=== PATIENT | female | born 1975 | race Caucasian/White ===

== ENCOUNTER → 2020-03-04 12:25 | Outpatient (BNVA) | payer OTHER, BC, SELFPAY | PROVIDERS: PCP Family Medicine; Visit Provider Nurse Practitioner Family | DX: Z20.828 Contact with and (suspected) exposure to other viral communicable diseases (principal) | CPT/HCPCS: 87635 ==

== ENCOUNTER → 2020-10-09 12:31 | Outpatient (BNVA) | payer OTHER, SELFPAY | PROVIDERS: Visit Provider Specialist | DX: G43.711 Chronic migraine without aura, intractable, with status migrainosus (principal) | CPT/HCPCS: 99214 ==

== ENCOUNTER 2020-11-09 09:22 | Outpatient (CLI) | payer OTHER, SELFPAY ==
--- NOTE | 2020-11-09 09:30 | MR_ITS ---
WS: [id number] MRI BRAIN WITHOUT CONTRAST HISTORY: G43.711 - Chronic migraine without aura, intractable, no injury. COMPARISON: 08/03/2013 TECHNIQUE: Diffusion imaging, multiplanar T1, T2 and FLAIR imaging obtained. No evidence for acute infarct or hemorrhage. Ruiz-white matter differentiation is normal. No remote or acute infarcts are volume loss. Ventricles and extra-axial spaces are normal. No inferior displacement of cerebellar tonsils. The sella turcica and pituitary gland are unremarkabl e. Posterior fossa is also unremarkable. Dural venous sinuses and [place] demonstrate no abnormality on this unenhanced studies. Paranasal sinuses: Clear. Mastoid air cells: Normal. Calvarium and scalp: No fracture. Ovoid 9 mm cyst in the superficial soft tissue posterior to the lef t ear. No change since 2013. MR/MR head wo con* [id number] IMPRESSION: 1. No acute infarct or hemorrhage. 2. No significant chronic white matter disease. Stable MRI brain since 4.
== END 2020-11-09 09:23 | disposition home or self-care (01) ==
LOC: RADSHAW 09:24
PROVIDERS: PCP Registered Nurse; Visit Provider Specialist
DX: G43.711 Chronic migraine without aura, intractable, with status migrainosus (principal)
CPT/HCPCS: 70551

== ENCOUNTER 2021-01-30 13:10 | Emergency (ER) | payer OTHER, SELFPAY ==
[2021-01-30 13:15] VITALS: BP 124/80; PULSE 96; RESP 18; TEMP 36.7; O2SAT 95; BMI 32.6
--- NOTE | 2021-01-30 13:25 | ED_ITS ---
HPI - Chest Pain General: Chief Complaint: Chest Pain Stated Complaint: CP(NOW RESOLVED);L ARM PAIN/TINGLING; PALPITATIONS Time Seen by Provider: 01/30/21 13:25 History of Present Illness: HPI narrative: Ms Handy is a 45-year-old lady with significant past medical history of palpitations and chest pain who presents to the emergency department due to chest pain. She reports pain at her baseline health recently without frequent episodes of chest pain. This morning, while driving she had subacute onset of a deep ache sensation that was moderate intensity in her left shoulder with mild tingling sensation down the left arm. She cannot think of specific provoking factors to this. Since that time it is persisted though is perhaps more mild. She attempted lngs-puh-[id number] medications with only minimal relief. She says that this is different from pre vious episodes of chest pain. There is no associated shortness of breath. No history of blood clot or recent travel. She does endorse still occasionally having palpitations and previously had a Holter monitor in 2019 which showed sinus arrhythmia with occasional ectopy. There was no arrhythmia correlated with episodes of chest pressure. No infectious symptoms. She is a non-smoker but does have a positive family history for early coronary artery disease. No other new specific changes in health, provoking, exacerbating, or relieving factors identified. Review of Systems General: Reports: 10 or more systems reviewed and unremarkable except in HPI and below Narrative: CONSTITUTIONAL: denies fever, fatigue, weakness EYES - denies pain, denies loss of vision NOSE - denies congestion or rhinorrhea. THROAT - denies sore throat or difficulty swallowing. CARDIOVASCULAR -see HPI RESPIRATORY - denies shortness of breath and cough GASTROINTESTINAL - denies abdominal pain, no nausea vomiting, no changes in bowel habits GENITOURINARY - denies dysuria or urinary frequency MUSCULOSKELETAL- denies deformity or pain SKIN - denies rashes or new changed skin lesions NEUROLOGIC - denies focal weakness or sensory changes HEMATOLOGIC/LYMPHATIC - denies easy bruising or lymphadenopathy. PFS ED PFSH: Medical History Anxiety Hepatic hemangioma Hypothyroidism Migraine Obesity Family History Grandfather Family history of premature coronary artery disease, Onset Age: 40 s/p CABG Father Family history of premature coronary artery disease, Onset Age: 62 in 60's, of massive [place] Mother Diabetes Grandmother Diabetes Family/Other CAD (coronary artery disease), Onset Age: 60 stents after [place] in paternal uncle Other Cancer Social History Smoking and tobacco status: never smoked Alcohol intake: current Alcohol intake frequency: holidays/special occasions only Physical Exam Narrative: EXAM NARRATIVE: GENERAL/CONSTITUTIONAL - well-appearing. No acute distress. Eyes - PERRL, no conjunctival injection ENMT - Atraumatic external nose and ears. Moist mucous membranes NECK - supple. trachea midline CARDIOVASCULAR - regular rate and rhythm. Peripheral pulses 2+ and equal RESPIRATORY -clear to auscultation bilaterally. No retractions or accessory muscle use. ABDOMEN/GI - Nontender/Nondistended. No tenderness to percussion or evidence of peritonitis MSK - Extremities without obvious deformity or tenderness to palpation SKIN - Warm, Dry NEURO - alert and appropriately oriented. strength and sensation intact. Moves all extremities equally. PSYCH - Appropriate mood and affect Course ED course: - Patient was seen and evaluated by me at bedside - Patient placed on cardiac monitors, IV access obtained - Initial evaluation notable for no acute distress, nontoxic appearance. - Labs notable for no acute abnormality to explain patient's symptoms. Symptom onset was greater than 6 hours ago and initial troponin is negative therefore repeat not needed. - Imaging notable for no acute abnormality to explain patient's symptoms. - Upon serial reexamination after treatment the patient was similar - Based on patient history, evaluation, labs, and imaging as interpreted the most likely cause of the patient's condition is unclear. I explained the methodology and risk stratification of heart score. The patient felt safe with outpatient follow-up as typical for low risk heart score. - The results of ED evaluation were discussed with the patient including prescriptions and/or symptomatic cares (if applicable) including appropriate and responsible use, followup plan, and return precautions. The patient verbalized understanding and felt safe for discharge. - Patient discharged in satisfactory condition. Vital Signs: Vital signs: Vital Signs Temperature 98.1 F 01/30/21 15:55 Pulse Rate 75 01/30/21 15:55 Respiratory Rate 18 01/30/21 15:55 Blood Pressure 119/45 01/30/21 15:55 Pulse Oximetry 98 01/30/21 15:55 MDM - Chest Pain Medical Records: Attestation: I reviewed the patient's medical records. Lab Data: Attestation: I reviewed the patient's lab results. Labs: Lab Results 01/30/21 01/30/21 01/30/21 Range/Units 14:11 14:11 14:11 WBC 8.8 (4.0-10.0) 10^3/ uL RBC 4.55 (4.1-5.3) 10^6/u L Hgb 13.4 (11.5-15.3) g/dL Hct 39.3 (37.0-47.0) % MCV 86.4 (81-99) fl MCH 29.5 (28.0-34.0) pg MCHC 34.1 (30.0-36.0) g/dL RDW 12.3 (12.1-15.1) % Plt Count 260 (130-400) 10^3/c mm MPV 10.9 H (7.4-10.4) fL Neut % (Auto) 56.3 % Lymph % (Auto) 30.2 % [place] % (Auto) 13.1 % Eos % (Auto) 0.0 % Baso % (Auto) 0.1 % Neut # (Auto) 4.93 (1.8-7.7) 10^3/u L Lymph # (Auto) 2.7 (0.8-4.8) 10^3/u L [place] # (Auto) 1.2 H (0.2-0.9) 10^3/u L Eos # (Auto) 0.0 (0.0-0.8) 10^3/u L Baso # (Auto) 0.0 (0.0-0.1) 10^3/u L Nucleated RBC % (a uto) 0 % Nucleated RBCs # 0.0 /100WBC Sodium 138 (136-145) mmol/L Potassium 4.0 (3.5-5.1) mmol/L Chloride 105 (98-107) mmol/L Carbon Dioxide 23 (22-29) mmol/L Anion Gap 14.0 (5-19) BUN 12 (6-20) mg/dL Creatinine 0.5 (0.5-0.9) mg/dL GFR Calculation 133.4 H (90-130) mL/min Glucose 108 (65-115) mg/dL Calculated Osmolal ity 286 (285-295) mOsm/k g Calcium 8.6 (8.5-10.5) mg/dL Total Bilirubin 0.2 (0.15-1.2) mg/dL AST 17 (0-32) U/L ALT 21 (0-33) U/L Alkaline Phosphata se 77 (35-105) IU/L Troponin T Baselin e 6 (0-10) ng/L Total Protein 6.5 L (6.6-8.7) g/dL Albumin 3.9 (3.5-5.2) g/dL Globulin 2.6 (1.3-4.6) g/dL TSH 0.05 L (0.27-4.20) uIU/ mL Free T4 (0.82-1.77) ng/d L 01/30/21 Range/Units 14:11 WBC (4.0-10.0) 10^3/ uL RBC (4.1-5.3) 10^6/u L Hgb (11.5-15.3) g/dL Hct (37.0-47.0) % MCV (81-99) fl MCH (28.0-34.0) pg MCHC (30.0-36.0) g/dL RDW (12.1-15.1) % Plt Count (130-400) 10^3/c mm MPV (7.4-10.4) fL Neut % (Auto) % Lymph % (Auto) % [place] % (Auto) % Eos % (Auto) % Baso % (Auto) % Neut # (Auto) (1.8-7.7) 10^3/u L Lymph # (Auto) (0.8-4.8) 10^3/u L [place] # (Auto) (0.2-0.9) 10^3/u L Eos # (Auto) (0.0-0.8) 10^3/u L Baso # (Auto) (0.0-0.1) 10^3/u L Nucleated RBC % (a uto) % Nucleated RBCs # /100WBC Sodium (136-145) mmol/L Potassium (3.5-5.1) mmol/L Chloride (98-107) mmol/L Carbon Dioxide (22-29) mmol/L Anion Gap (5-19) BUN (6-20) mg/dL Creatinine (0.5-0.9) mg/dL GFR Calculation (90-130) mL/min Glucose (65-115) mg/dL Calculated Osmolal ity (285-295) mOsm/k g Calcium (8.5-10.5) mg/dL Total Bilirubin (0.15-1.2) mg/dL AST (0-32) U/L ALT (0-33) U/L Alkaline Phosphata se (35-105) IU/L Troponin T Baselin e (0-10) ng/L Total Protein (6.6-8.7) g/dL Albumin (3.5-5.2) g/dL Globulin (1.3-4.6) g/dL TSH (0.27-4.20) uIU/ mL Free T4 0.96 (0.82-1.77) ng/d L EKG Data^: EKG 1: Attestation: I personally reviewed and interpreted this EKG as follows: EKG interpretation date: 01/30/21 EKG interpretation time: 13:35 Prior EKG tracings: not available for review Interpretation: Twelve-lead EKG shows a regular sinus rhythm at a rate of 86. MA interval 128, QRS duration 88, QTc 422. Normal axis. Interpretation: Sinus rhythm. Discharge Plan Discharge Patient Disposition: Home Clinical Impression: Chest pain Condition: Stable Prescriptions: No Action thyroid (pork) [[place] Thyroid] 120 mg tablet 120 mg PO DAILY RF: 0 sumatriptan succinate [Imitrex] 100 mg tablet 100 mg PO Q2H PRN (Reason: Migraine Headache) RF: 0 venlafaxine 150 mg capsule,extended release 24hr 150 mg PO DAILY RF: 0 Vitamin D3 50 mcg (2,000 unit) Capsule 50 mcg PO DAILY RF: 0 Discharge Orders: Discharge ED (Routine); Ordered 01/30/21 Ordered By: Austin Putnam Referrals: Rhianna Diop DO [Primary Care Provider] - Discharge Diet: Usual diet Discharge Activity: Resume usual activity Patient Instructions: Chest Pain (ED) Activity Restrictions/Additional Instructions: Thank you for visiting the emergency department. You were seen and evaluated for chest pain and arm pain. The exact cause of your symptoms is unclear. Based on risk stratification we recommend following up in the outpatient setting for further cardiac monitoring including a stress test and echocardiogram and follow-up with cardiology. 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 Please return to the emergency department for worsening your symptoms or anything else that you are concerned about and feel needs emergency department evaluation. Coding Level of Care Code ED Medical Record Librarian for Neri Long
[2021-01-30 13:33] VITALS: BP 133/78; PULSE 91; RESP 18; O2SAT 97
--- NOTE | 2021-01-30 13:48 | XRR_ITS ---
PROCEDURE INFORMATION: Exam: XR Chest Exam date and time: 01/30/2021 1:48 PM Age: 45 years old Clinical indication: Angina pectoris; Patient HX: --cp this morning, has since resolved, lingering left arm and shoulder pain; Additional info: Chest pain TECHNIQUE: Imaging protocol: XR of the chest. Views: 1 view. COMPARISON: No relevant prior studies available. FINDINGS: Lungs: Unremarkable. No consolidation. Pleural spaces: Unremarkable. No pleural effusion. No pneumothorax. Heart/Mediastinum: Unremarkable. No cardiomegaly. Bones/joints: Unremarkable. XR/XR chest 1V portable [id number] IMPRESSION: No acute findings.
--- NOTE | 2021-01-30 13:52 | PC.NURSE ---
pt remains on school lunch monitor
[2021-01-30 13:54] VITALS: BP 133/78; PULSE 85; RESP 18; O2SAT 97
[2021-01-30] MEDS: aspirin 81 mg Chew Tablet 324 MG PO (14:12)
--- NOTE | 2021-01-30 14:16 | PC.NURSE ---
pt requesting to have blood draw and water PO. Dr. Putnam. IV order deleted
[2021-01-30 14:19] LABS: Basophils % 0.1 %; Hematocrit 39.3 % (37.0-47.0); Hemoglobin 13.4 g/dL (11.5-15.3); Lymphocytes # 2.7 10^3/uL (0.8-4.8); Lymphocytes % 30.2 %; Mean Corpuscular HGB Conc 34.1 g/dL (30.0-36.0); Mean Corpuscular Hemoglobin 29.5 pg (28.0-34.0); Mean Corpuscular Volume 86.4 fl (81-99); Mean Platelet Volume 10.9 fL (7.4-10.4); Monocytes # 1.2 10^3/uL (0.2-0.9); Monocytes % 13.1 %; Neutrophils # 4.93 10^3/uL (1.8-7.7); Neutrophils % 56.3 %; Nucleated Red Blood Cells % 0 %; Platelet Count 260 10^3/cmm (130-400); Red Blood Count 4.55 10^6/uL (4.1-5.3); Red Cell Distribution Width 12.3 % (12.1-15.1); White Blood Count 8.8 10^3/uL (4.0-10.0)
[2021-01-30 14:34] VITALS: BP 133/78; PULSE 85; RESP 18; TEMP 36.7; O2SAT 97
[2021-01-30 14:39] LABS: Troponin(5th) Baseline 6 ng/L (0-10)
[2021-01-30 14:48] VITALS: BP 121/47; PULSE 77; RESP 16; O2SAT 99
[2021-01-30 14:48] LABS: Alanine Aminotransferase 21 U/L (0-33); Albumin Level 3.9 g/dL (3.5-5.2); Alkaline Phosphatase 77 IU/L (35-105); Aspartate Amino Transferase 17 U/L (0-32); Blood Urea Nitrogen 12 mg/dL (6-20); Calcium 8.6 mg/dL (8.5-10.5); Carbon Dioxide 23 mmol/L (22-29); Chloride 105 mmol/L (98-107); Globulin 2.6 g/dL (1.3-4.6); Glomerular Filtration Rate 133.4 mL/min (90-130); Glucose 108 mg/dL (65-115); Osmolality Calculated 286 mOsm/kg (285-295); Sodium 138 mmol/L (136-145); Thyroid Stimulating Hormone 0.05 uIU/mL (0.27-4.20); Total Bilirubin 0.2 mg/dL (0.15-1.2); Total Protein 6.5 g/dL (6.6-8.7)
[2021-01-30 15:35] LABS: Free T4 Free Thyroxine 0.96 ng/dL (0.82-1.77)
--- NOTE | 2021-01-30 15:48 | ECG_ITS ---
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
[2021-01-30 15:55] VITALS: BP 119/45; PULSE 75; RESP 18; TEMP 36.7; O2SAT 98
--- NOTE | 2021-01-31 10:22 | DCPLANNER ---
medical practice manager had message to schedule an outpatient stress test, and an outpatient echocardiogram, and a heart care followup. medical practice manager faxed signed order to centralized scheduling for stress test and echo cardiogram, who will call patient with appointment information. medical practice manager will call heart care and make a follow up appointment.
--- NOTE | 2021-03-02 14:26 | DCPLANNER ---
Addendum entered by Carissa Clements 06/22/21 11:19: Patient had a stress test scheduled - this appointment was cancelled. Patient had an echo scheduled for 03.28.21 - patient did attend appointment. Original Note: Patient has an out patient stress test scheduled for Sunday, March 28, 2021 at 9:15. Centralized scheduling will call patient with appointment information. Patient has an echo cardiogram scheduled for Sunday, March 28, 2021 at 10:15. Centralized scheduling will call patient with appointment information. it infrastructure project manager will call and schedule a follow up appointment for patient with heart care.
== END 2021-01-30 15:57 | disposition home or self-care (01) ==
PROVIDERS: Emergency Provider Emergency Medicine; PCP Family Medicine
DX: R07.9 Chest pain, unspecified (principal); E03.9 Hypothyroidism, unspecified; E66.9 Obesity, unspecified; Z68.32 Body mass index [BMI] 32.0-32.9, adult; Z82.49 Family history of ischemic heart disease and other diseases of the circulatory system
CPT/HCPCS: 71045; 80053; 84439; 84443; 84484; 85025; 93005; 99283

== ENCOUNTER 2021-03-28 09:53 | Outpatient (CLI) | payer OTHER, SELFPAY ==
--- NOTE | 2021-03-28 10:15 | USCV_ITS ---
Rozina Chacha Age: 45 Gender: F : 1975 Exam Date: 03/28/2021 10:09 Ordering Phys: Moisés Moreno DO Technologist: Radha Corado Exam Location: [facility] [place] Indication: CHEST PAIN BP: / HR: 69 Rhythm: Sinus Technical Quality: Adequate MEASUREMENTS (Male / Female) Normal Values 2D ECHO LV Diastolic Diameter PLAX 4.5 cm 4.2 - 5.9 / 3.9 - 5.3 cm LV Systolic Diameter PLAX 3.4 cm IVS Diastolic Thickness 1.1 cm 0.6 - 1.0 / 0.6 - 0.9 cm IVS Systolic Thickness 0.9 cm LVPW Diastolic Thickness 1.0 cm 0.6 - 1.0 / 0.6 - 0.9 cm LVPW Systolic Thickness 1.6 cm LVOT Diameter 2.0 cm LV Ejection Fraction 2D Teich 55.3 % LV Ejection Fraction MOD 2C 63.8 % LV Ejection Fraction 2C AL 62.8 % LA Width 2.7 cm LA Height 3.9 cm RA Width 3.1 cm RA Height 4.4 cm Aorta at Sinotubular Diameter 3.2 cm DOPPLER AV Peak Velocity 115.0 cm/s LVOT Peak Velocity 92.0 cm/s AV Area Cont Eq vti 2.3 cm squared AV Area Cont Eq pk 2.6 cm squared MV Peak Velocity 86.0 cm/s MV Area PHT 3.7 cm squared Mitral E to A Ratio 1.1 MV E' Velocity 50.0 cm/s Mitral E to MV E' Ratio 8.2 Mitral E to LV E' Lateral Ratio 7.9 Mitral E to LV E' Septal Ratio 8.5 TR Peak Velocity 86.0 cm/s TR Peak Gradient 3.0 mmHg Right Atrial Pressure 3.0 mmHg Pulmonary Artery Systolic Pressu 6.0 mmHg PV Peak Velocity 63.0 cm/s RV Acceleration Time 0.1 s RV Ejection Time 0.3 s RV AcT/ET 0.5 FINDINGS Left Ventricle Normal left ventricular size and systolic function, EF 69 %. No regional wall motion abnormalities. Right Ventricle The right ventricle is normal in size and function. Right Atrium The right atrium is normal in size. Left Atrium The left atrium is normal in size. Mitral Valve No gross abnormalities noted Aortic Valve Echodensity was noted in the noncoronary cusp of the aortic valve. Cannot exclude papilloma/vegetations Tricuspid Valve Trace to mild tricuspid valve regurgitation. Pulmonic Valve Pulmonic valve not well visualized. Pericardium No pericardial effusion. Aorta Normal aortic annulus size. CONCLUSIONS Normal left ventricular size and systolic function, EF 69 %. No regional wall motion abnormalities. Echodensity was noted in the noncoronary cusp of the aortic valve. Cannot exclude papilloma/vegetations. Consider GREG, to better evaluate this lesion Trace to mild tricuspid valve regurgitation. No previous study is available for comparison. Estimated pulmonary artery peak systolic pressure was within normal limits Dr Parag Norman MD [facility] (Electronically Signed) Final Date: 28 March 2021 22:44 S
--- NOTE | 2021-03-29 17:59 | PC.NURSE ---
Patient notified per Dr Norman request to be see in ER for IV antibiotics.
== END 2021-03-28 09:54 | disposition home or self-care (01) ==
PROVIDERS: PCP Nurse Practitioner Family; Visit Provider Family Medicine
DX: R07.9 Chest pain, unspecified (principal); I07.1 Rheumatic tricuspid insufficiency
CPT/HCPCS: 93306

== ENCOUNTER → 2021-03-29 09:48 | Outpatient (BNVA) | payer OTHER, SELFPAY | PROVIDERS: PCP Nurse Practitioner Family; Visit Provider Specialist | DX: G43.711 Chronic migraine without aura, intractable, with status migrainosus (principal) | CPT/HCPCS: 99213; 99214 ==

== ENCOUNTER 2021-03-29 19:55 | Emergency (ER) | payer OTHER, SELFPAY ==
[2021-03-29 19:56] VITALS: BP 136/82; PULSE 84; RESP 18; TEMP 36.8; O2SAT 99; BMI 34.0
--- NOTE | 2021-03-29 20:29 | ECG_ITS ---
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 Measurements Intervals [place] Rate: 76 P: 56 MO: 131 QRS: 54 QRSD: 98 T: 55 QT: 363 QTc: 408 Interpretive Statements SINUS RHYTHM Compared to ECG 01/30/2021 13:30:13 No significant changes Electronically Signed On 03-29-2021 23:57:54 CDT by Parag Norman M.D. [id number] f
--- NOTE | 2021-03-29 20:29 | XRR_ITS ---
PROCEDURE INFORMATION: Exam: XR Chest Exam date and time: 03/29/2021 8:29 PM Age: 45 years old Clinical indication: Pain; Left-sided; Additional info: Cp/anxiety TECHNIQUE: Imaging protocol: XR of the chest. Views: 1 view. COMPARISON: CR XR chest 1V portable [id number] 01/30/2021 1:51 PM FINDINGS: The lungs are clear of infiltrate. There are no pleural effusions or pneumothorax. The heart size and pulmonary vascularity are normal. There is a calcified granuloma within the left mid lung. XR/XR chest 1V portable [id number] IMPRESSION: No active disease. Radiation Dose CTDIVOL = (mGy): DLP = (mGy-cm)
--- NOTE | 2021-03-29 20:41 | ED_ITS ---
Documented by User: ALDO Hsieh 03/30/21 03:02 HPI - Anxiety General: Chief Complaint: Anxiety Stated Complaint: Dr. Norman told her to come in and be seen Time Seen by Provider: 03/29/21 20:29 History of Present Illness: HPI narrative: Patient is a 45-year-old female who comes to the ED as directed by PCP for possible bacterial endocarditis. Patient had an echocardiogram done yesterday March 28. The report showed some po ssible vegetation on the aortic valve. She was called by PCP and told to come to the ED to get IV antibiotics and to be admitted for further evaluation. For the past couple months she has had some on and off chest pain, but says she has not had any chest pain today or in the past several weeks. Patient says she has had a migraine for the past couple weeks but denies any other symptoms. she has a history of migraines, but says this one has lasted for a while. She took a dose of sumatriptan before coming to the ED. She denies any chest pain, shortness of breath, abdominal pain, nausea/vomiting, fever, chills, bladder or bowel symptoms. Patient denies any history of endocarditis and denies any history of IV drug use. Associated symptoms: Reports headache(s); Deny chest pain, chills, fever(s), nausea, palpitations or vomiting Review of Systems Const: Denies: fever(s), chills or fatigue Eyes: Denies: change in vision or eye discomfort ENMT: Denies: throat pain, odynophagia, nasal discharge or nasal congestion Card: Denies: chest pain, palpitations, edema, swelling of feet/ankles, dyspnea on exertion or orthopnea Resp: Denies: dyspnea, productive cough or non-productive cough GI: Denies: abdominal pain, nausea, vomiting, diarrhea, constipation or hematochezia : Denies: flank pain, dysuria or hematuria Musc: Denies: neck pain, back pain or extremity swelling Skin/Breast: Denies: rash or new lesions Neuro: Reports: headache(s); Denies: numbness in extremities or weakness in extremities PFS ED PFSH: Medical History (Updated 04/06/21 @ 00:02 by ) Anxiety Hepatic hemangioma Hypothyroidism Migraine Obesity Family History Grandfather Family history of premature coronary artery disease, Onset Age: 40 s/p CABG Father Family history of premature coronary artery disease, Onset Age: 62 in 60's, of massive AK Mother Diabetes Grandmother Diabetes Family/Other CAD (coronary artery disease), Onset Age: 60 stents after AK in paternal uncle Other Cancer Social History Smoking and tobacco status: never smoked Alcohol intake: current Alcohol intake frequency: holidays/special occasions only Physical Exam Narrative: EXAM NARRATIVE: Patient is a pleasant 45-year-old female that appears healthy and in no acute distress or pain. Const: COMMON NORMALS: no acute distress, patient oriented x3 and alert GENERAL APPEARANCE: cooperative and comfortable HENMT: COMMON NORMALS: normocephalic HEAD & SCALP: normocephalic MOUTH: Normal oral and palatal mucosa present THROAT: posterior oropharynx normal and uvula midline Eye: COMMON NORMALS: Equal, round and reactive pupils present PUPIL: Yes Equal, round and reactive pupils present Neck/C-Spine: COMMON NORMALS: supple GENERAL: Yes normal visual inspection Resp: COMMON NORMALS: normal respiratory effort, No retractions, No use of accessory muscles and clear to auscultation bilaterally AUSCULTATION: clear to auscultation bilaterally Cardio: COMMON NORMALS: regular rate, regular rhythm, S1 normal heart sound present, S2 normal heart sound present, No gallops present (Cardio), No clicks p resent (Cardio), No murmurs present (Cardio) and Peripheral pulses 2+ throughout RATE: regular rate RHYTHM: regular rhythm HEART SOUNDS: S1 normal heart sound present and S2 normal heart sound present PERIPHERAL PULSES: Peripheral pulses 2+ throughout GI: COMMON NORMALS: Normal to inspection, nondistended, normoactive bowel sounds present, Soft to palpation, non-tender and no masses PALPATION: Yes Soft to palpation : COMMON NORMALS: Yes no CVA tenderness BLADDER/KIDNEY EXAM: Yes no CVA tenderness Back/Pelvis: COMMON NORMALS: no CVA tenderness Extremity: COMMON NORMALS: normal to inspection and no pedal edema Neuro: COMMON NORMALS: patient oriented x3 and moves all extremities SENSORIUM/ORIENTATION: Yes alert Skin: GENERAL SKIN EXAM: dry skin Course Consultations: Consultation #1: I contacted the hospitalist Dr. Garcia and told her about patient case, lab findings and echocardiogram from yesterday. Patient's labs were all normal, she is asymptomatic and vitals are stable. Dr. Garcia recommended we contact the chronograph operator to get their input and see if patient needs to be admitted or if they can be seen outpatient for follow-up since patient is stable, asymptomatic and all the labs are normal. Time: 22:15 Consultation #2: I contacted the chronograph operator Dr. Damian and talked with her about patient case and the echocardiogram findings. Since patient is stable and has no symptoms and all her labs have come back normal she would like to see patient on an outpatient basis and does not think she needs to be admitted. She would like to see patient sometime next week. Time: 22:38 Vital Signs: Vital signs: Vital Signs Temperature 98.3 F 03/29/21 19:56 Pulse Rate 77 03/29/21 23:02 Respiratory Rate 18 03/29/21 23:02 Blood Pressure 146/53 03/29/21 23:02 Pulse Oximetry 99 03/29/21 23:02 MDM - Anxiety MDM Narrative: Medical decision making narrative: Patient is a 45-year-old female that was told to come to the ED due to echocardiogram results. Patient had an echocardiogram done yesterday March 28 and it showed possible vegetation/polyps on the aortic valve. A GREG for further evaluation was recommended. Patient is asymptomatic and not having any fevers, chest pain, shortness of breath. Her only complaint is a migraine, but she has a history of migraines and took some sumatriptan before coming to the ED. Exam is benign patient appears nontoxic and in no acute distress or pain. Vitals stable. Labs were unremarkable. Blood cultures are pending. EKG showed normal sinus rhythm with no ST segment elevation or depression seen. Chest x-ray showed no acute findings. CT of head showed no acute findings. I talked with Dr. Moran about patient case and he recommended I call the hospitalist to discuss case with them to see what their recommendations are. I talked with Dr. Garcia about patient case and she wanted me to contact the chronograph operator to get their input on patient since she is asymptomatic, vitals and labs look good. I contacted Dr. Damian and told her about patient case and echocardiogram findings. She thought patient does not need to be admitted and could have follow-up with her outpatient next week. I placed an order with case management for patient to be referred to Dr. Damian for further evaluation of echocardiogram findings. Patient's migraine improved while here in the ED. Patient was comfortable with plan and was happy to go home. She was diagnosed with abnormal echocardiogram and migraine and discharged home. She was told that case management will contact her in the next several days to set up an appointment with the chronograph operator Dr. Damian. She was given strict return to ED precautions, such as any fever, chest pain, shortness of breath to return immediately to the ED. Patient understood and agreed with plan. Medical Records: Attestation: I reviewed the patient's medical records. Medical records narrative: [facility] [address]Wetvkwcxaa ReportSigned Patient: Michael Handy #: [id number]: 1975Acct#:[id number]/[id number] ex: 45 / FADM Date: 03/28/21Loc: RADRoom/Bed:Attending Dr: Moisés Moreno DO Ordering Provider/Ordering MD: Moisés Moreno DO Date of Service: 03/28/21 Procedure(s): CV. echo complete* [id number] Accession Number(s): [id number] Report Number: [id number] Chacha Handy Age: 45 Gender: F : 1975 Exam Date: 03/28/2021 10:09 Ordering Phys: Moisés Moreno DO Technologist: Radha Corado Exam Location: [facility] Indication: CHEST PAIN BP: / HR: 69 Rhythm: Sinus Technical Quality: Adequate MEASUREMENTS (Male / Female) Normal Values 2D ECHO LV Diastolic Diameter PLAX 4.5 cm 4.2 - 5.9 / 3.9 - 5.3 cm LV Systolic Diameter PLAX 3.4 cm IVS Diastolic Thickness 1.1 cm 0.6 - 1.0 / 0.6 - 0.9 cm IVS Systolic Thickness 0.9 cm LVPW Diastolic Thickness 1.0 cm 0.6 - 1.0 / 0.6 - 0.9 cm LVPW Systolic Thickness 1.6 cm LVOT Diameter 2.0 cm LV Ejection Fraction 2D Teich 55.3 % LV Ejection Fraction MOD 2C 63.8 % LV Ejection Fraction 2C AL 62.8 % LA Width 2.7 cm LA Height 3.9 cm RA Width 3.1 cm RA Height 4.4 cm Aorta at Sinotubular Diameter 3.2 cm DOPPLER AV Peak Velocity 115.0 cm/s LVOT Peak Velocity 92.0 cm/s AV Area Cont Eq vti 2.3 cm squared AV Area Cont Eq pk 2.6 cm squared MV Peak Velocity 86.0 cm/s MV Area PHT 3.7 cm squared Mitral E to A Ratio 1.1 MV E' Velocity 50.0 cm/s Mitral E to MV E' Ratio 8.2 Mitral E to LV E' Lateral Ratio 7.9 Mitral E to LV E' Septal Ratio 8.5 TR Peak Velocity 86.0 cm/s TR Peak Gradient 3.0 mmHg Right Atrial Pressure 3.0 mmHg Pulmonary Artery Systolic Pressu 6.0 mmHg PV Peak Velocity 63.0 cm/s RV Acceleration Time 0.1 s RV Ejection Time 0.3 s RV AcT/ET 0.5 FINDINGS Left Ventricle Normal left ventricular size and systolic function, EF 69 %. No regional wall motion abnormalities. Right Ventricle The right ventricle is normal in size and function. Right Atrium The right atrium is normal in size. Left Atrium The left atrium is normal in size. Mitral Valve No gross abnormalities noted Aortic Valve Echodensity was noted in the noncoronary cusp of the aortic valve. Cannot exclude papilloma/vegetations Tricuspid Valve Trace to mild tricuspid valve regurgitation. Pulmonic Valve Pulmonic valve not well visualized. Pericardium No pericardial effusion. Aorta Normal aortic annulus size. CONCLUSIONS Normal left ventricular size and systolic function, EF 69 %. No regional wall motion abnormalities. Echodensity was noted in the noncoronary cusp of the aortic valve. Cannot exclude papilloma/vegetations. Consider GREG, to better evaluate this lesion Trace to mild tricuspid valve regurgitation. No previous study is available for comparison. Estimated pulmonary artery peak systolic pressure was within normal limits Dr Parag Norman MD [facility] (Electronically Signed) Final Date: 28 March 2021 22:44 S Imaging Data^: CXR: Attestation: I personally reviewed and interpreted this imaging study as follows: Radiologist's impression: [facility], [place] [address]ECto ReportSigned Patient: Michael Handy #: [id number]: 1975Acct#:[id number]/[id number] ex: 45 / FADM Date: 03/29/21Loc: ERRoom/Bed:Attending Dr: Ordering Provider/Ordering MD: Hung Shea Date of Service: 03/29/21 Procedure(s): XR chest 1V portable [id number] Accession Number(s): [id number] Report Number: [id number] PROCEDURE INFORMATION: Exam: XR Chest Exam date and time: 03/29/2021 8:29 PM Age: 45 years old Clinical indication: Pain; Left-sided; Additional info: Cp/anxiety TECHNIQUE: Imaging protocol: XR of the chest. Views: 1 view. COMPARISON: CR XR chest 1V portable [id number] 01/30/2021 1:51 PM FINDINGS: The lungs are clear of infiltrate. There are no pleural effusions or pneumothorax. The heart size and pulmonary vascularity are normal. There is a calcified granuloma within the left mid lung. XR/XR chest 1V portable [id number] IMPRESSION: No active disease. Radiation Dose CTDIVOL = (mGy): DLP = (mGy-cm) Dictated By:Raciel Woods MDSigned By:Raciel Woods MDSigned Date/Time:03/29/212119DD/ 28 CT Head: Attestation: I personally reviewed and interpreted this imaging study as follows: Radiologist's impression: [facility] [address] [place], [place] [address]YC Scan ReportSigned Patient: Michael Handy #: [id number]: 1975Acct#:[id number]/Sex: 45 / FADM Date: 03/29/21Loc: ERRoom/Bed:Attending Dr: Ordering Provider/Ordering MD: Hung Shea Date of Service: 03/29/21 Procedure(s): CT head wo con* [id number] Accession Number(s): [id number] Report Number: [id number] PROCEDURE INFORMATION: Exam: CT Head Without Contrast Exam date and time: 03/29/2021 9:21 PM Age: 45 years old Clinical indication: Pain; Headache; Migraine; Additional info: Migraine x 2 weeks TECHNIQUE: Imaging protocol: Computed tomography of the head without contrast. Radiation optimization: All CT scans at this facility use at least one of these dose optimization techniques: automated exposure control; mA and/or kV adjustment per patient size (includes targeted exams where dose is matched to clinical indication); or iterative reconstruction. COMPARISON: MR head wo con* [id number] 11/09/2020 9:37 AM RADIATION DOSE METRICS: Total DLP (mGy-cm): 866.87 FINDINGS: The ventricles, sulci and basilar cisterns appear normal for the patient's stated age. There is no evidence of mass, hemorrhage or infarct. No extra-axial fluid collections are identified. There is no midline shift. There is no evidence of fracture. There is an air-fluid level within the left maxillary sinus. There is patchy opacification of the ethmoid and sphenoid sinuses on the left. There is some mucosal thickening within the left frontal sinus. CT/CT head wo con* [id number] IMPRESSION: 1. No evidence for acute infarct, mass or hemorrhage. 2. Left maxillary sinusitis with mucosal thickening involving the left frontal, ethmoid and sphenoid sinuses as well. Radiation Dose CTDIVOL = (mGy): DLP = 866.87 (mGy-cm) Dictated By:Raciel Woods MDSigned By:Raciel Woods MDSigned Date/Time:03/29/212137DD/ 20 EKG Data^: EKG 1: Attestation: I personally reviewed and interpreted this EKG as follows: EKG interpretation date: 03/29/21 Interpretation: Chest X-Ray 03/29/21 20:29 IMPRESSION: No active disease. Radiation Dose CTDIVOL = (mGy): DLP = (mGy-cm) Head CT 03/29/21 21:21 IMPRESSION: 1. No evidence for acute infarct, mass or hemorrhage. 2. Left maxillary sinusitis with mucosal thickening involving the left frontal, ethmoid and sphenoid sinuses as well. Radiation Dose CTDIVOL = (mGy): DLP = 866.87 (mGy-cm) Sinus rhythm, 76 bpm, no ST segment elevation or depression seen. Other EKG comments: Chest X-Ray 03/29/21 20:29 IMPRESSION: No active disease. Radiation Dose CTDIVOL = (mGy): DLP = (mGy-cm) Head CT 03/29/21 21:21 IMPRESSION: 1. No evidence for acute infarct, mass or hemorrhage. 2. Left maxillary sinusitis with mucosal thickening involving the left frontal, ethmoid and sphenoid sinuses as well. Radiation Dose CTDIVOL = (mGy): DLP = 866.87 (mGy-cm) Lab Data: Attestation: I reviewed the patient's lab results. Labs: Lab Results 03/29/21 03/29/21 03/29/21 20:51 20:51 20:51 WBC 8.5 10^3/uL 10^3/ uL (4.0-10.0) RBC 4.65 10^6/uL 10^6 /uL (4.1-5.3) Hgb 13.7 g/dL g/dL (11.5-15.3) Hct 41.1 % % (37.0-47.0) MCV 88.4 fl fl (81-99) MCH 29.5 pg pg (28.0-34.0) MCHC 33.3 g/dL g/dL (30.0-36.0) RDW 12.7 % % (12.1-15.1) Plt Count 257 10^3/cmm 10^3 /cmm (130-400) MPV 11.0 fL H fL (7.4-10.4) Neut % (Auto) 54.5 % % Lymph % (Auto) 34.5 % % [place] % (Auto) 10.7 % % Eos % (Auto) 0.0 % % Baso % (Auto) 0.1 % % Neut # (Auto) 4.63 10^3/uL 10^3 /uL (1.8-7.7) Lymph # (Auto) 2.9 10^3/uL 10^3/ uL (0.8-4.8) [place] # (Auto) 0.9 10^3/uL 10^3/ uL (0.2-0.9) Eos # (Auto) 0.0 10^3/uL 10^3/ uL (0.0-0.8) Baso # (Auto) 0.0 10^3/uL 10^3/ uL (0.0-0.1) Nucleated RBC % (a uto) 0 % % Nucleated RBCs # 0.0 /100WBC /100W BC Sodium 141 mmol/L mmol/L (136-145) Potassium 4.2 mmol/L mmol/L (3.5-5.1) Chloride 106 mmol/L mmol/L (98-107) Carbon Dioxide 28 mmol/L mmol/L (22-29) Anion Gap 11.2 (5-19) BUN 13 mg/dL mg/dL (6-20) Creatinine 0.7 mg/dL mg/dL (0.5-0.9) GFR Calculation 90.5 mL/min mL/mi n (90-130) Glucose 92 mg/dL mg/dL (65-115) Calculated Osmolal ity 292 mOsm/kg mOsm/ kg (285-295) Calcium 9.2 mg/dL mg/dL (8.5-10.5) Total Bilirubin 0.2 mg/dL mg/dL (0.15-1.2) AST 16 U/L U/L (0-32) ALT 20 U/L U/L (0-33) Alkaline Phosphata se 72 IU/L IU/L (35-105) Troponin T Baselin e 6 ng/L ng/L (0-10) NT-Pro-B Natriuret Pep 17 pg/mL pg/mL (0-125) Total Protein 7.0 g/dL g/dL (6.6-8.7) Albumin 4.4 g/dL g/dL (3.5-5.2) Globulin 2.6 g/dL g/dL (1.3-4.6) Discharge Plan Discharge Patient Disposition: Home Clinical Impression: Abnormal echocardiogram, Migraine Condition: Stable Prescriptions: No Action thyroid (pork) [Model Thyroid] 120 mg tablet 120 mg PO DAILY RF: 0 venlafaxine 150 mg capsule,extended release 24hr 150 mg PO DAILY Qty: 30 RF: 1 sumatriptan succinate 100 mg tablet See Rx Instructions .ROUTE .COMPLEX Qty: 9 RF: 1 Vitamin D3 50 mcg (2,000 unit) Capsule 50 mcg PO DAILY RF: 0 Discharge Orders: Discharge ED (Routine); Ordered 03/29/21 Ordered By: Hung Shea Referrals: Giselle Vora [Primary Care Provider] - Discharge Diet: Regular Discharge Activity: Resume usual activity Patient Instructions: Endocarditis (DC) Activity Restrictions/Additional Instructions: Follow-up with medical provider as directed. Case management should be contacting you in the next several days to set up an appointment with Dr. Coffey the chronograph operator. Sending you home with some information on endocarditis, but you are not currently being diagnosed with it and need further evaluation with Cardiology. Continue taking all home medications as previously prescribed. Return to the ER or your medical provider if condition worsens, fevers, chest pain, shortness of breath...etc. Please read and understand discharge instructions. Thank you for choosing [facility] for your healthcare needs today. Please realize this is an emergency room and that we are providing you with a medical screening exam and this may not be complete and all inclusive of all the testing and or work up that you may need to determine your ailment or severity of your illness. It is very important that you follow up as instructed or that you return to the Emergency Department should you have concerns or if your condition changes or worsens in any way. Coding Level of Care Code ED Network Communications Engineer for Chg Fwd Exam Comprehensive Documented by User: Boyd Moran MD 04/07/21 13:30 HPI - Anxiety General: Chief Complaint: Anxiety Stated Complaint: Dr. Norman told her to come in and be seen Time Seen by Provider: 03/29/21 20:29 [facility] ED [facility]: Medical History (Updated 04/06/21 @ 00:02 by ) Anxiety Hepatic hemangioma Hypothyroidism Migraine Obesity Family History Grandfather Family history of premature coronary artery disease, Onset Age: 40 s/p CABG Father Family history of premature coronary artery disease, Onset Age: 62 in 60's, of massive AK Mother Diabetes Grandmother Diabetes Family/Other CAD (coronary artery disease), Onset Age: 60 stents after AK in paternal uncle Other Cancer Social History Smoking and tobacco status: never smoked Alcohol intake: current Alcohol intake frequency: holidays/special occasions only Course Vital Signs: Vital signs: Vital Signs Temperature 98.3 F 03/29/21 19:56 Pulse Rate 77 03/29/21 23:02 Respiratory Rate 18 03/29/21 23:02 Blood Pressure 146/53 03/29/21 23:02 Pulse Oximetry 99 03/29/21 23:02 MDM - Anxiety EKG Data^: EKG 1: Interpretation: Chest X-Ray 03/29/21 20:29 IMPRESSION: No active disease. Radiation Dose CTDIVOL = (mGy): DLP = (mGy-cm) Head CT 03/29/21 21:21 IMPRESSION: 1. No evidence for acute infarct, mass or hemorrhage. 2. Left maxillary sinusitis with mucosal thickening involving the left frontal, ethmoid and sphenoid sinuses as well. Radiation Dose CTDIVOL = (mGy): DLP = 866.87 (mGy-cm) Other EKG comments: Chest X-Ray 03/29/21 20:29 IMPRESSION: No active disease. Radiation Dose CTDIVOL = (mGy): DLP = (mGy-cm) Head CT 03/29/21 21:21 IMPRESSION: 1. No evidence for acute infarct, mass or hemorrhage. 2. Left maxillary sinusitis with mucosal thickening involving the left frontal, ethmoid and sphenoid sinuses as well. Radiation Dose CTDIVOL = (mGy): DLP = 866.87 (mGy-cm) Lab Data: Labs: Lab Results 03/29/21 03/29/21 03/29/21 20:51 20:51 20:51 WBC 8.5 10^3/uL 10^3/ uL (4.0-10.0) RBC 4.65 10^6/uL 10^6 /uL (4.1-5.3) Hgb 13.7 g/dL g/dL (11.5-15.3) Hct 41.1 % % (37.0-47.0) MCV 88.4 fl fl (81-99) MCH 29.5 pg pg (28.0-34.0) MCHC 33.3 g/dL g/dL (30.0-36.0) RDW 12.7 % % (12.1-15.1) Plt Count 257 10^3/cmm 10^3 /cmm (130-400) MPV 11.0 fL H fL (7.4-10.4) Neut % (Auto) 54.5 % % Lymph % (Auto) 34.5 % % [place] % (Auto) 10.7 % % Eos % (Auto) 0.0 % % Baso % (Auto) 0.1 % % Neut # (Auto) 4.63 10^3/uL 10^3 /uL (1.8-7.7) Lymph # (Auto) 2.9 10^3/uL 10^3/ uL (0.8-4.8) [place] # (Auto) 0.9 10^3/uL 10^3/ uL (0.2-0.9) Eos # (Auto) 0.0 10^3/uL 10^3/ uL (0.0-0.8) Baso # (Auto) 0.0 10^3/uL 10^3/ uL (0.0-0.1) Nucleated RBC % (a uto) 0 % % Nucleated RBCs # 0.0 /100WBC /100W BC Sodium 141 mmol/L mmol/L (136-145) Potassium 4.2 mmol/L mmol/L (3.5-5.1) Chloride 106 mmol/L mmol/L (98-107) Carbon Dioxide 28 mmol/L mmol/L (22-29) Anion Gap 11.2 (5-19) BUN 13 mg/dL mg/dL (6-20) Creatinine 0.7 mg/dL mg/dL (0.5-0.9) GFR Calculation 90.5 mL/min mL/mi n (90-130) Glucose 92 mg/dL mg/dL (65-115) Calculated Osmolal ity 292 mOsm/kg mOsm/ kg (285-295) Calcium 9.2 mg/dL mg/dL (8.5-10.5) Total Bilirubin 0.2 mg/dL mg/dL (0.15-1.2) AST 16 U/L U/L (0-32) ALT 20 U/L U/L (0-33) Alkaline Phosphata se 72 IU/L IU/L (35-105) Troponin T Baselin e 6 ng/L ng/L (0-10) NT-Pro-B Natriuret Pep 17 pg/mL pg/mL (0-125) Total Protein 7.0 g/dL g/dL (6.6-8.7) Albumin 4.4 g/dL g/dL (3.5-5.2) Globulin 2.6 g/dL g/dL (1.3-4.6) Discharge Plan Discharge Patient Disposition: Home Clinical Impression: Abnormal echocardiogram, Migraine Condition: Stable Prescriptions: No Action thyroid (pork) [Model Thyroid] 120 mg tablet 120 mg PO DAILY RF: 0 venlafaxine 150 mg capsule,extended release 24hr 150 mg PO DAILY Qty: 30 RF: 1 sumatriptan succinate 100 mg tablet See Rx Instructions .ROUTE .COMPLEX Qty: 9 RF: 1 Vitamin D3 50 mcg (2,000 unit) Capsule 50 mcg PO DAILY RF: 0 Discharge Orders: Discharge ED (Routine); Ordered 03/29/21 Ordered By: Hung Shea Referrals: Giselle Vora [Primary Care Provider] - Discharge Diet: Regular Discharge Activity: Resume usual activity Patient Instructions: Endocarditis (DC) Activity Restrictions/Additional Instructions: Follow-up with medical provider as directed. Case management should be contacting you in the next several days to set up an appointment with Dr. Coffey the chronograph operator. Sending you home with some information on endocarditis, but you are not currently being diagnosed with it and need further evaluation with Cardiology. Continue taking all home medications as previously prescribed. Return to the ER or your medical provider if condition worsens, fevers, chest pain, shortness of breath...etc. Please read and understand discharge instructio ns. Thank you for choosing [facility] for your healthcare needs today. Please realize this is an emergency room and that we are providing you with a medical screening exam and this may not be complete and all inclusive of all the testing and or work up that you may need to determine your ailment or severity of your illness. It is very important that you follow up as instructed or that you return to the Emergency Department should you have concerns or if your condition changes or worsens in any way. Coding Level of Care Code ED Network Communications Engineer for Chg Fwd Exam Comprehensive
[2021-03-29 21:00] LABS: Basophils % 0.1 %; Hematocrit 41.1 % (37.0-47.0); Hemoglobin 13.7 g/dL (11.5-15.3); Lymphocytes # 2.9 10^3/uL (0.8-4.8); Lymphocytes % 34.5 %; Mean Corpuscular HGB Conc 33.3 g/dL (30.0-36.0); Mean Corpuscular Hemoglobin 29.5 pg (28.0-34.0); Mean Corpuscular Volume 88.4 fl (81-99); Monocytes # 0.9 10^3/uL (0.2-0.9); Monocytes % 10.7 %; Neutrophils # 4.63 10^3/uL (1.8-7.7); Neutrophils % 54.5 %; Nucleated Red Blood Cells % 0 %; Platelet Count 257 10^3/cmm (130-400); Red Blood Count 4.65 10^6/uL (4.1-5.3); Red Cell Distribution Width 12.7 % (12.1-15.1); White Blood Count 8.5 10^3/uL (4.0-10.0)
--- NOTE | 2021-03-29 21:21 | CTR_ITS ---
PROCEDURE INFORMATION: Exam: CT Head Without Contrast Exam date and time: 03/29/2021 9:21 PM Age: 45 years old Clinical indication: Pain; Headache; Migraine; Additional info: Migraine x 2 weeks TECHNIQUE: Imaging protocol: Computed tomography of the head without contrast. Radiation optimization: All CT scans at this facility use at least one of these dose optimization techniques: automated exposure control; mA and/or kV adjustment per patient size (includes targeted exams where dose is matched to clinical indication); or iterative reconstruction. COMPARISON: MR head wo con* [id number] 11/09/2020 9:37 AM RADIATION DOSE METRICS: Total DLP (mGy-cm): 866.87 FINDINGS: The ventricles, sulci and basilar cisterns appear normal for the patient's stated age. There is no evidence of mass, hemorrhage or infarct. No extra-axial fluid collections are identified. There is no midline shift. There is no evidence of fracture. There is an air-fluid level within the left maxillary sinus. There is patchy opacification of the ethmoid and sphenoid sinuses on the left. There is some mucosal thickening within the left frontal sinus. CT/CT head wo con* [id number] IMPRESSION: 1. No evidence for acute infarct, mass or hemorrhage. 2. Left maxillary sinusitis with mucosal thickening involving the left frontal, ethmoid and sphenoid sinuses as well. Radiation Dose CTDIVOL = (mGy): DLP = 866.87 (mGy-cm)
[2021-03-29 21:26] LABS: Troponin(5th) Baseline 6 ng/L (0-10)
[2021-03-29 21:34] LABS: Alanine Aminotransferase 20 U/L (0-33); Albumin Level 4.4 g/dL (3.5-5.2); Alkaline Phosphatase 72 IU/L (35-105); Anion Gap 11.2 (5-19); Aspartate Amino Transferase 16 U/L (0-32); Blood Urea Nitrogen 13 mg/dL (6-20); Calcium 9.2 mg/dL (8.5-10.5); Carbon Dioxide 28 mmol/L (22-29); Chloride 106 mmol/L (98-107); Globulin 2.6 g/dL (1.3-4.6); Glomerular Filtration Rate 90.5 mL/min (90-130); Glucose 92 mg/dL (65-115); NT Pro B Type Natriuretic Pept 17 pg/mL (0-125); Osmolality Calculated 292 mOsm/kg (285-295); Potassium 4.2 mmol/L (3.5-5.1); Sodium 141 mmol/L (136-145); Total Bilirubin 0.2 mg/dL (0.15-1.2)
[2021-03-29 22:29] VITALS: BP 119/60; PULSE 83; RESP 18; O2SAT 98
[2021-03-29 23:02] VITALS: BP 146/53; PULSE 77; RESP 18; O2SAT 99
--- NOTE | 2021-03-30 11:39 | DCPLANNER ---
Addendum entered by Carissa Clements 06/24/21 15:40: Patient had a follow up appointment scheduled with heart care - appointment was cancelled. Original Note: behavioral health case manager had message to schedule a follow up appointment for patient with [facility]. behavioral health case manager called the [facility], spoke with Charmaine, gave clinic patients information. A follow up appointment was scheduled for , April 12, 2021 at 9:[address] Damian at the [facility]. behavioral health case manager called patient and informed her of the scheduled appointment.
== END 2021-03-29 23:05 | disposition home or self-care (01) ==
PROVIDERS: Emergency Provider Physician Assistant; PCP Nurse Practitioner Family
DX: R94.31 Abnormal electrocardiogram [ECG] [EKG] (principal); G43.909 Migraine, unspecified, not intractable, without status migrainosus
CPT/HCPCS: 70450; 71045; 80053; 83880; 84484; 85025; 87040; 93005; 99283

== ENCOUNTER 2021-04-20 10:34 | Day surgery (SDC) | payer OTHER, SELFPAY ==
[2021-04-20 11:36] VITALS: BP 144/74; PULSE 80; RESP 16; TEMP 36.3; O2SAT 98
[2021-04-20] MEDS: sodium chloride 0.9% 1,000 ML 30 ML IV (11:45)
--- NOTE | 2021-04-20 12:00 | USCV_ITS ---
Chacha Handy Age: 45 Gender: F : 1975 Exam Date: 04/20/2021 12:23 Ordering Phys: Gissell Damian MD ([email or web address]) Technologist: JOE DUMONT [place] [facility] [place]: Aortic valve mass BP: / HR: Rhythm: Sinus Technical Quality: Excellent MEASUREMENTS (Male / Female) Normal Values Medications Patient given IV sedation by anesthesia service, for details please refer to the anesthesia report. Complications Intubation easy. Attempts x 1. Patient tolerated procedure well. No blood on probe post procedure. Proc. Components The patient was brought to the GREG examination room in a fasting state after obtaining an informed consent. FINDINGS Left Ventricle Normal left ventricular size, systolic function and wall thickness, with no regional wall motion abnormalities. Left ventricular ejection fraction is estimated at 60-65%. Right Ventricle Normal right ventricular size and systolic function. Right Atrium Normal right atrial size. Left Atrium Normal left atrial size. LA Appendage Normal left atrial appendage. Normal flow velocities in the left atrial appendage. No thrombus visualized in the left atrial appendage. IA Septum Normal interatrial septum. No patent foramen ovale or atrial septal defect by color doppler or agitated saline (bubble) study. Mitral Valve Structurally normal mitral valve. No mitral valve stenosis. Mild mitral valve regurgitation. Aortic Valve Trileaflet aortic valve. 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 No aortic valve stenosis. No aortic valve regurgitation. Tricuspid Valve Structurally normal tricuspid valve. No tricuspid valve stenosis. Trace to mild tricuspid valve regurgitation. Pulmonic Valve Structurally normal pulmonic valve. Trace pulmonary valve regurgitation. Pericardium No pericardial effusion. Aorta Normal size aortic root and proximal ascending aorta. No aortic dilation, aneurysm or dissection. CONCLUSIONS 1. Normal left ventricular size, systolic function and wall thickness, with no regional wall motion abnormalities. Left ventricular ejection fraction is estimated at 60-65%. 2. 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 No aortic valve stenosis or regurgitation. 3. Mild mitral valve regurgitation. 4. No patent foramen ovale or atrial septal defect by color doppler or agitated saline (bubble) study. Gissell Damian MD (Electronically Signed) Final Date: 24 April 2021 20:22 S
--- NOTE | 2021-04-20 12:07 | W.PM.OPSFHP ---
Same Day Surgery H&P Indication for Procedure/HPI DATE OF PROCEDURE: April 20, 2021 CHIEF COMPLAINT/INDICATIONFOR SURGICAL PROCEDURE: 43 yo woman with family h/o CAD, migraine and anxiety presented for evaluation of chest pain. Palpitation with heart rate beating fast. One episode of heart fluttering . She was in the ER and underwent stress test. She exercised for 8:59 minutes and achieved 10 METs. Normal EKG response. No evidence of ischemia or infarction. She underwent TTE on 03/28/21 and Echodensity was noted in the noncoronary cusp of the aortic valve. Cannot exclude papilloma/vegetations. She is here for [facility]REG to assess that. No fever, chills or UTI/URI like symptoms. PREOP DIAGNOSIS: Aortic valve mass PLANNED PROCEDRUE: Operation Date: 04/20/21 12:00 Proposed Procedures p GREG(Not Applicable) - Gisslel Damian MD Medications/Allergies* Home Medications Medication Instructions Recorded Confirmed Type thyroid (pork) 120 mg tablet 120 mg PO DAILY 08/02/19 04/20/21 History cholecalciferol (vitamin D3) 50 mcg PO DAILY 01/30/21 04/20/21 History [Vitamin D3] venlafaxine 150 mg PO DAILY 04/20/21 04/20/21 History Allergies/Adverse Reactions Allergy/AdvReac Type Severity Reaction Status Date / Time No Known Allergies Allergy Verified 04/20/21 11:33 Current Medications: Generic Name Dose Route Start Last Admin Trade Name Freq PRN Reason Stop Dose Admin Sodium Chloride 1,000 mls @ 30 mls/hr 04/20/21 11:00 04/20/21 11:45 Sodium Chloride 0.9% IV 04/21/21 10:59 30 mls/hr .Q24H STARR Administration Pertinent History/Comorbid Conditions* Medical History (Updated 04/06/21 @ 00:02 by ) Anxiety Hepatic hemangioma Hypothyroidism Migraine Obesity Family History (Updated 08/02/19 @ 16:25 by Gissell Damian MD) Diabetes Mother Grandmother CAD (coronary artery disease) Family/Other, Onset Age: 60 stents after VT in paternal uncle Family history of premature coronary artery disease Grandfather, Onset Age: 40 s/p CABG Father, Onset Age: 62 in 60's, of massive VT Cancer Social History Smoking and tobacco status: never smoked Alcohol intake: current Alcohol intake frequency: holidays/special occasions only Pertinent Exam Findings alert, oriented x 3, clear to auscultation bilaterally, regular rate & rhythm and procedure specific exam findings (ASA 2) Recommendations Surgery/Procedure today Coding Level of Care Code Acute Director Of Direct Marketing for Neri Long
[2021-04-20 12:56] VITALS: BP 130/81; PULSE 77; RESP 18; TEMP 36.3; O2SAT 96
[2021-04-20 13:06] VITALS: BP 141/71; PULSE 73; RESP 18; O2SAT 100
--- NOTE | 2021-04-20 13:52 | ANES.PREANE2 ---
Pre-Anesthetic Assessment Pre-Anesthetic Assessment: Height/Weight: Height 1.73 m Temp Pulse Resp BP Pulse Ox 97.4 F L 73 18 141/71 100 04/20/21 12:56 04/20/21 13:06 04/20/21 13:06 04/20/21 13:06 04/20/21 13:06 Preop Diagnosis: Aortic valve mass Proposed Procedure: Operation Date: 04/20/21 12:00 Proposed Procedures p GREG(Not Applicable) - Gissell Damian MD Was Beta Damaris taken within 24 hours: N/A Was Clonidine taken within 24 hours: N/A Last intake: Intake Last Liquid Date 04/19/21 Last Liquid Time 22:30 Last Solid Date 04/19/21 Last Solid Time 22:30 Social: Social History: No alcohol and No tobacco Exam: Pre-Anes Outpt Exam: alert, oriented x 3, clear to auscultation bilaterally and regular rate & rhythm Airway: Submandibular: WNL Cervical ROM: WNL MP: 2 Dentition: Full Metabolic: Metabolic: Thyroid Neuropsych: Neuropsych: Anxiety, Depression and BOOTH Anesthetic Plan: ASA status: 2 Anesthesia: MAC Risk of > 500 ml blood loss (7ml/kg in children): No PFSH Anesthesia PFSH: Medical History (Updated 04/06/21 @ 00:02 by ) Anxiety Hepatic hemangioma Hypothyroidism Migraine Obesity Family History Grandfather Family history of premature coronary artery disease, Onset Age: 40 s/p CABG Father Family history of premature coronary artery disease, Onset Age: 62 in 60's, of massive [place] Mother Diabetes Grandmother Diabetes Family/Other CAD (coronary artery disease), Onset Age: 60 stents after IN in paternal uncle Other Cancer Social History Smoking and tobacco status: never smoked Alcohol intake: current Alcohol intake frequency: holidays/special occasions only Data Anesthesia Cardiac Studies: Echocardiogram 03/28/21 Holter Monitor 08/20/19
--- NOTE | 2021-04-20 13:53 | ANE.PACU2 ---
Inpatient post-anesthesia follow up: Airway intact: Yes Vital signs: Temperature 97.4 F Pulse Rate 73 Respiratory Rate 18 Blood Pressure 141/71 Pulse Oximetry 100 Oxygen Delivery Me thod Room Air Oxygen Flow Rate Fraction of Inspir ed Oxygen Hydration adequate: Yes Nausea and vomiting: No Pain level: 1 Mental status: Baseline
== END 2021-04-20 13:25 | disposition home or self-care (01) ==
PROVIDERS: PCP Nurse Practitioner Family; Visit Provider Internal Medicine Cardiovascular Disease
PROC: (CPT 93312; principal; 2021-04-20 12:00)
DX: I35.9 Nonrheumatic aortic valve disorder, unspecified (principal); I34.0 Nonrheumatic mitral (valve) insufficiency; E03.9 Hypothyroidism, unspecified
CPT/HCPCS: 93312; 93320; 93325; 96360; J2704; J7030

== ENCOUNTER 2021-08-23 14:31 | Outpatient (CLI) | payer OTHER, SELFPAY ==
--- NOTE | 2021-08-23 14:48 | XR_ITS ---
WS: [id number] Cervical spine, 3 views, 08/23/2021 Clinical Data: CERVICAL RADICULOPATHY/NECK PAIN Comparison: None. Findings: No compression fractures are seen. There is minimal anterior inferior spurring of the C5 an d C6 vertebral bodies. The disc heights are normal. There is no prevertebral soft tissue swelling. Th e odontoid is unremarkable. The soft tissues of the neck and the lung apices are normal. XR/XR cervical spine 3V* [id number] Impression: Minimal osteoarthritis C5 and C6.
== END 2021-08-23 14:32 | disposition home or self-care (01) ==
PROVIDERS: Visit Provider Nurse Practitioner Family
DX: M54.12 Radiculopathy, cervical region (principal); M47.812 Spondylosis without myelopathy or radiculopathy, cervical region
CPT/HCPCS: 72040